=== PATIENT | male | born 1960 | race Caucasian/White ===

== ENCOUNTER → 2018-04-23 | Outpatient (CLI) | payer OTHER ==
--- NOTE | 2018-04-23 11:14 | Diagnostic Imaging Report ---
Exam: Abdominal film Clinical History: calculus Comparison: None. DISCUSSION: Frontal view of the abdomen shows a nonobstructive bowel gas pattern with mild amount of retained stool. No dilated, air-filled loops of bowel. No abnormal calcifications. No acute bone abnormality. IMPRESSION: No radiopaque calculi Signed by: Dr. Guillaume Cannon M.D. on 04/23/2018 11:11 AM
== END ==
LOC: RAD 10:13
PROVIDERS: ATTEND Urology
DX: N20.0 Calculus of kidney (principal)
CPT/HCPCS: 74018

== ENCOUNTER → 2018-05-02 | Day surgery (SDC) | payer OTHER ==
[2018-04-29 08:46] LABS: BASOPHILS % 0.3 % (0.0-1.0); EOSINOPHILS # (AUTO) 0.2 (0.0-0.4); EOSINOPHILS % 2.9 % (0.0-6.0); HEMATOCRIT 43.5 % (38.2-49.6); HEMOGLOBIN 13.9 g/dL (14.0-18.0); LYMPHOCYTES # (AUTO) 2.3 (1.0-3.2); LYMPHOCYTES % 33.2 % (18.0-39.1); MEAN CORPUSCULAR HEMOGLOBIN 26.5 pg (28-32); MEAN CORPUSCULAR VOLUME 82.9 fL (81-99); MONOCYTES # (AUTO) 0.7 (0.2-0.8); MONOCYTES % 9.9 % (4.4-11.3); NEUTROPHILS # (AUTO) 3.7 (2.1-6.9); NEUTROPHILS % 53.6 % (38.7-80.0); PLATELET COUNT 291 x10e3/uL (140-360); RED BLOOD COUNT 5.25 x10e6/uL (4.3-5.7); RED CELL DISTRIBUTION WIDTH 15.9 % (11.7-14.4)
--- NOTE | 2018-04-29 09:03 | Diagnostic Imaging Report ---
EXAM: CHEST 2 VIEWS, PA and lateral DATE: 04/29/2018 Time stamp on exam: 8:42 AM INDICATION: Preoperative for umbilical hernia repair. COMPARISON: None FINDINGS: LINES/TUBES: None LUNGS: No consolidations or edema. PLEURA: No effusions or pneumothorax. HEART AND MEDIASTINUM: Normal size and contour. BONES AND SOFT TISSUES: No acute findings. Plate is partially visualized and overlies the lower cervical spine. IMPRESSION: No acute thoracic abnormality. Signed by: Dr. Carloz Lantigua DO on 04/29/2018 9:00 AM
[2018-04-29 09:12] LABS: ALANINE AMINOTRANSFERASE 20 IU/L (0-55); ALBUMIN 4.1 g/dL (3.5-5.0); ALBUMIN/GLOBULIN RATIO 1.1 (0.8-2.0); ALKALINE PHOSPHATASE 54 IU/L (40-150); ANION GAP 14.2 mmol/L (8-16); BLOOD UREA NITROGEN 14 mg/dL (7-26); BUN/CREATININE RATIO 14 (6-25); CALCIUM 9.5 mg/dL (8.4-10.2); CARBON DIOXIDE 24 mmol/L (22-29); CHLORIDE 102 mmol/L (98-107); CREATININE, SERUM 1.01 mg/dL (0.72-1.25); EST GLOMERULAR FILTRATION RATE > 60 ML/MIN (60-); GLUCOSE 75 mg/dL (74-118); POTASSIUM 4.2 mmol/L (3.5-5.1); SODIUM 136 mmol/L (136-145)
[~2018-05-02] MED LIST: ACETAMINOPHEN 1000 MG/100 ML 100 ML IV ONE; DEXAMETHASONE SOD PHOS INJ 4 MG/ML VIAL ONE; FENTANYL CITRATE/PF 100MCG/2 ML INJ ONE; HYDROCODONE/APAP 7.5MG-325MG 1 EA TAB ONE; KETOROLAC TROMETHAMINE 30 MG/ML VIAL ONE; LIDOCAINE HCL 2% LOCAL INJ 5 ML SDV VIAL INJ ONE; LORAZEPAM2 MG PO; MIDAZOLAM HCL 2 MG/2 ML VIAL ONE; ONDANSETRON HCL INJ 2MG/ML 2ML 2 MG/ML VIAL ONE; PROPOFOL IV EMULSION 10 MG/ML 20 ML VIAL ONE; ROCURONIUM BROMIDE 10 MG/ML 5ML VIAL ONE; SEVOFLURANE INHAL SOLN 250 ML PEN BTL ONE; TESTOSTERO200 MG/1 M INJ
--- OUTSIDE RECORDS SUMMARY | 2018-05-02 10:52 | XMS REPORT ---
Author Author [facility] Address Unknown Phone Unavailable Care Team Providers Care Sample Supervisor Name Role Phone Ellen GUTIERREZ Unavailable Unavailable HAMPEL, SEGUNDO Unavailable Unavailable Problems This patient has no known problems. Allergies, Adverse Reactions, Alerts This patient has no known allergies or adverse reactions. Medications This patient has no known medications. Results Test Description Test Time Test Comments Text Results Atomic Results Result Comments CHEST 2 VIEWS 2018-04-29 08:58:00 [place] [address] Patient Name: FRANCA MARISCAL MR #: [id number] : 1960 Age/Sex: 58/M Req #: [id number] Adm Physician: Ordered by: DESMOND GUTIERREZ MD Report #: [id number] Location: OR Room/Bed: Procedure: [id number] DX/CHEST 2 VIEWS Exam Date: 04/29/18 Exam Time: 0820 REPORT STATUS: Signed EXAM: CHEST 2 VIEWS, PA and lateral DATE: 04/29/2018 Time stamp on exam: 8:42 AM INDICATION: Preoperative for umbilical hernia repair. COMPARISON: None FINDINGS: LINES/TUBES: None LUNGS: No consolidations or edema. PLEURA: No effusions or pneumothorax. HEART AND MEDIASTINUM: Normal size and contour. BONES AND SOFT TISSUES: No acute findings. Plate is partially visualized and overlies the lower cervical spine. IMPRESSION: No acute thoracic abnormality. Signed by: Dr. Dusty Lantigua DO on 04/29/2018 9:00 AM Dictated By: DUSTY LANTIGUA DO 09 Transcribed By: SARAHI on 04/29/18 09 COPY TO: DESMOND GUTIERREZ MD ABDOMEN-1VIEW (KUB) 2018-04-23 11:07:00 [place] [address] Patient Name: FRANCA MARISCAL MR #: [id number] : 1960 Age/Sex: 58/M Req #: [id number] Adm Physician: Ordered by: SEGUNDO GUERRERO MD Report #: [id number] Location: [facility] Room/Bed: Procedure: [id number] DX/ABDOMEN-1VIEW (KUB) Exam Date: 04/23/18 Exam Time: 1012 REPORT STATUS: Signed Exam: Abdominal film Clinical History: calculus Comparison: None. DISCUSSION: Frontal view of the abdomen shows a nonobstructive bowel gas pattern with mild amount of retained stool. No dilated, air-filled loops of bowel. No abnormal calcifications. No acute bone abnormality. IMPRESSION: No radiopaque calculi Signed by: Dr. Chanda Dodge M.D. on 04/23/2018 11:11 AM Dictated By: CHANDA DODGE MD 1111 Transcribed By: SARAHI on 04/23/18 1111 COPY TO: SEGUNDO GUERRERO MD
[2018-05-02 18:15] VITALS: BP 130/80
--- NOTE | 2018-05-02 18:26 | Operative Report ---
DATE OF PROCEDURE: May 02, 2018 PREOPERATIVE DIAGNOSIS: Incarcerated umbilical hernia. POSTOPERATIVE DIAGNOSIS: Incarcerated umbilical hernia. OPERATION PERFORMED: Repair of incarcerated umbilical hernia with Ventralex patch. ANESTHESIA: General. COMPLICATIONS: None. ESTIMATED BLOOD LOSS: Minimal. DESCRIPTION OF PROCEDURE: With the patient lying in bed in the supine position under good general anesthesia, the abdomen was prepped with Betadine solution and draped in the usual manner. A semilunar subumbilical incision was made and carried down through the subcutaneous tissue down to the fascia. The hernia sac was then encircled with normal fascia all the way around. The umbilicus was then detached from the hernia sac and the hernia contents and sac were then reduced back to the intra-abdominal cavity. After this was done, the preperitoneal space was entered without any difficulty and a pocket was created without any problems. A medium-sized Ventralex patch was then placed in the preperitoneal space and deployed without any difficulty. The mesh and the defect were then anchored in a transverse fashion using interrupted sutures of 0 Ethibond. This gave us a satisfactory closure with good anchoring of the mesh. The whole area was then thoroughly irrigated. Perfect hemostasis was ascertained. The fascia was then infiltrated with 0.25% Marcaine solution. The umbilicus was then tacked back down to the midline with 3-0 Vicryl. Subcutaneous tissue was approximated with 3-0 Vicryl and the skin was closed with interrupted vertical mattress sutures of 3-0 silk. A dressing was applied. The sponge, lap and needle count was correct. The patient tolerated the procedure well and returned to the recovery room in stable condition. Job#: [id number] JODI
== END | disposition home or self-care (01) ==
LOC: OR 10:50
PROVIDERS: ATTEND Surgery
DX: K42.0 Umbilical hernia with obstruction, without gangrene (principal); Z01.810 Encounter for preprocedural cardiovascular examination; Z01.812 Encounter for preprocedural laboratory examination; Z01.811 Encounter for preprocedural respiratory examination
CPT/HCPCS: 36415; 49587; 71046; 80053; 85025; C1781; J0131; J1100; J1885; J2001; J2250; J2405; J2704

== ENCOUNTER → 2018-10-08 | Outpatient (CLI) | payer OTHER ==
[~2018-10-08] MED LIST changes: -ACETAMINOPHEN 1000 MG/100 ML 100 ML IV ONE; -DEXAMETHASONE SOD PHOS INJ 4 MG/ML VIAL ONE; -FENTANYL CITRATE/PF 100MCG/2 ML INJ ONE; -HYDROCODONE/APAP 7.5MG-325MG 1 EA TAB ONE; -KETOROLAC TROMETHAMINE 30 MG/ML VIAL ONE; -LIDOCAINE HCL 2% LOCAL INJ 5 ML SDV VIAL INJ ONE; -MIDAZOLAM HCL 2 MG/2 ML VIAL ONE; -ONDANSETRON HCL INJ 2MG/ML 2ML 2 MG/ML VIAL ONE; -PROPOFOL IV EMULSION 10 MG/ML 20 ML VIAL ONE; -ROCURONIUM BROMIDE 10 MG/ML 5ML VIAL ONE; -SEVOFLURANE INHAL SOLN 250 ML PEN BTL ONE
--- NOTE | 2018-10-08 14:20 | Diagnostic Imaging Report ---
EXAM: ABDOMEN-1VIEW (KUB) DATE: 10/08/2018 10:05 AM INDICATION: Kidney stone ^[id number] ^1000 ^CALCULUS OF KIDNEY COMPARISON: KUB, 04/23/2018 FINDINGS: 2 supine views of the abdomen show a normal distribution of air in the small and large bowel. No specific abnormal soft tissue calcification is seen. No acute bony abnormality. IMPRESSION: No abnormal calcification is identified. No significant change from previous exam. Signed by: Dr. Terence Lynch M.D. on 10/08/2018 2:17 PM
== END ==
LOC: RAD 09:53
PROVIDERS: ATTEND Urology
DX: N20.0 Calculus of kidney (principal)
CPT/HCPCS: 74018

== ENCOUNTER → 2020-08-16 | Outpatient (CLI) | payer OTHER | LOC: RAD 09:14 | PROVIDERS: ATTEND Urology | DX: N20.0 Calculus of kidney (principal) | CPT/HCPCS: 74018 ==

== ENCOUNTER 2021-11-21 21:41 | Emergency (ER) | payer OTHER ==
[~2021-11-21] VITALS: Ht 180.3 cm; Wt 97.5 kg
[2021-11-21] MEDS ORDERED: LIDOCAINE JELLY 2% 10ML URO-JET TOP ONE (22:00)
== END 2021-11-21 22:16 | disposition home or self-care (01) ==
LOC: ER 21:48
DX: R33.9 Retention of urine, unspecified (principal)
CPT/HCPCS: 51700; 87086; 99283